=== PATIENT | female | born 1960 | race Caucasian/White ===

== ENCOUNTER 2022-09-21 12:07 | Outpatient (CLI) | payer BC | END 2022-09-21 12:08 | disposition home or self-care (01) | LOC: SCSMRI 12:07 | PROVIDERS: ATTEND Family Medicine | DX: M47.26 Other spondylosis with radiculopathy, lumbar region (principal); M48.061 Spinal stenosis, lumbar region without neurogenic claudication; M51.16 Intervertebral disc disorders with radiculopathy, lumbar region; M51.17 Intervertebral disc disorders with radiculopathy, lumbosacral region; M47.27 Other spondylosis with radiculopathy, lumbosacral region | CPT/HCPCS: 72100; 72148 ==